=== PATIENT | male | born 1975 | race Caucasian/White ===

== ENCOUNTER 2023-04-28 08:28 | Day surgery (SDC) | payer OTHER ==
[~2023-04-28] VITALS: Ht 177.8 cm; Wt 102.9 kg
[~2023-04-28 08:28] MED LIST: IBLOOD GLUCOSE TEST STRIP 1 EA TEST VI PRN; LACTATED RINGER'S 1,000 ML IV SCH; LIDOCAINE HCL 1% 5 ML SDV INJ ONE; MIDAZOLAM HCL 5 MG/5 ML VIAL IV PRN; fentaNYL citrate 100 MCG/2 ML VIAL IV PRN
[2023-04-28 08:47] VITALS: BP 134/98
[2023-04-28] MEDS ORDERED: FLOMAX0.4 MG PO (08:50)
[2023-04-28] MEDS ORDERED: MIDAZOLAM HCL 5 MG/5 ML VIAL ONE (09:50)
[2023-04-28] MEDS ORDERED: fentaNYL citrate 100 MCG/2 ML VIAL ONE (09:50)
--- NOTE | 2023-04-28 10:47 | NUR ---
04/28/23 Shayne7 Virginia Tavarez 1042-PATIENT ARRIVED TO PACU ON 2L NC RR EVEN. PATIENT DROWSY REACTIVE TO VERBAL STIMULI OPENING EYES DENIES PAIN OR NAUSEA. PATIENT LAYING LEFT LATERAL ABDOMEN SOFT. IVF INFUSING. PATIENT DOZES BACK TO SLEEP
[2023-04-28 11:34] VITALS: BP 134/96
--- NOTE | 2023-04-28 16:44 | OR ---
[facility] [address], [place] [address] Signed DATE OF OPERATION: 04/28/2023 SURGEON: Damian Balderas MD PREOPERATIVE DIAGNOSIS: Screening. POSTOPERATIVE DIAGNOSES: 1. 4 mm polyp at 6 cm in the rectum. 2. Angulated left colon. PROCEDURE: Colonoscopy with hot biopsy. ESTIMATED BLOOD LOSS: None. INDICATIONS: Doyle is a 47-year-old gentleman, asked to see me for his initial screening colonoscopy. He has no lower GI complaints. There is no family history of colon cancer or polyps. In the office, I gave him a pamphlet on colonoscopy and we looked at that together. He understands the nature of the test. There is risk including, but not limited to gas bloating, crampy abdominal pain, bleeding, perforation requiring surgery, and missed diagnosis. We also reviewed the written instructions for the bowel prep line by line. We also discussed the need for IV conscious sedation. He understands an adult person has to take him home afterwards. He had expressed understanding and wished to proceed. DESCRIPTION OF PROCEDURE: Doyle was taken into our endoscopy suite and placed in the left lateral decubitus position. He was given a total of 7 mg of Versed and 175 mcg of fentanyl. Even then he was frequently awake, talking and in pain. In particular, he has an angulated area in his left colon that took a bit to get around. I think he would be much better served with monitored anesthesia care in the future with propofol infusion. I think it would certainly be more comfortable for him and technically easier for the endoscopist. Thankfully, his prep was quite excellent. We eventually made it slowly but surely into the cecum itself. He had just a few areas of liquid stool which were suctioned out. We could easily see the appendiceal orifice and the ileocecal valve. The scope was then slowly withdrawn. We took several pictures throughout for photodocumentation. He had no pathology in his entire colon except for that angulated area. Once in the rectum, he had just a tiny 4 mm polyp back at 6 cm. It was easily removed with the help of hot Electronically Signed By: DAMIAN BALDERAS MD 04/28/23 1644 PATIENT NAME: DOYLE MONTEIRO OPERATIVE REPORT DATE OF : 71 REPORT #: [id number] PHYSICIAN: DAMIAN BALDERAS MD PCP: NAHUM LYNN MD REPORT IS CONFIDENTIAL AND NOT TO BE RELEASED WITHOUT AUTHORIZATION [facility] [address], [place] [address] Signed biopsy forceps. Upon retroflexion of the scope, I really did not see any new pathology. He had just a little bit of internal hemorrhoid tissue. After this, the gas was suctioned out and the colonoscope removed. Doyle overall tolerated the procedure well. RECOMMENDATIONS: I will see Doyle back in my office in 7 to 14 days to review his results. I suspect this will be a hyperplastic polyp and he will be on the 10 year plan. He might consider monitored anesthesia care with propofol infusion in the future as described above. Damian Balderas MD ALB/LUCINDAL /[id number] cc: MD Damian Hood MD Copies: NAHUM LYNN DMD, ANDREW L MD ~ Electronically Signed By: DAMIAN BALDERAS MD 04/28/23 1644 PATIENT NAME: DOYLE MONTEIRO OPERATIVE REPORT DATE OF : 71 REPORT #: [id number] PHYSICIAN: DAMIAN BALDERAS MD PCP: NAHUM LYNN MD REPORT IS CONFIDENTIAL AND NOT TO BE RELEASED WITHOUT AUTHORIZATION
--- NOTE | 2023-04-30 10:57 | PATH ---
[facility] [address] [place], [place] [address] Signed SPECIMEN(S): A RECTAL POLYP, 6 CM SPECIMEN SOURCE: A. RECTAL POLYP, 6 CM CLINICAL HISTORY: Screening. Polyp 6 cm. FINAL PATHOLOGIC DIAGNOSIS: Rectal polyp, biopsies: - Fragments of hyperplastic polyp. AMB MICROSCOPIC EXAMINATION: Histologic sections of all submitted blocks are examined by light microscopy. These findings, together with the gross examination, support the pathologic diagnosis. GROSS DESCRIPTION: The specimen, labeled and designated "Ander rectal polyp 6 cm," is received in formalin and consists of two peng soft tissue fragments, ranging from 0.2-0.3 cm. Entirely submitted in (A1). VB (under the direct supervision of a pathologist) The Gross Description was prepared using a voice recognition system. The report was reviewed for accuracy; however, sound-alike word errors, addition and/or deletions may occur. If there is any question about this report, please contact Client Services. ADDITIONAL NOTES: Immunohistochemical and/or in situ hybridization studies if performed in this case included appropriate positive controls that reacted as expected. This test was developed and its performance characteristics determined by [facility]. It has not been cleared or approved by the U.S. Food and Drug Administration. The FDA has determined that such clearance or approval is not necessary. This test is used for clinical purposes. It should not be regarded as investigational or for research. [facility] is certified under the Clinical Laboratory Improvement Amendments of 1988 (CLIA) as qualified to perform high complexity clinical laboratory testing. PATIENT NAME: QUINN MONTEIRO PATHOLOGY DATE OF : 71 REPORT #: [id number] PHYSICIAN: LUKE TAYLOR PCP: NAHUM LYNN MD REPORT IS CONFIDENTIAL AND NOT TO BE RELEASED WITHOUT AUTHORIZATION [facility] [address] [place], [place] [address] Signed PERFORMING LABORATORY: Technical component was performed by [facility], [address] [place] [address] (CLIA# [id number]). Professional interpretation was performed by [facility] [address] [address] [id number] Diagnostician: Charline Hudson MD Pathologist Electronically Signed 04/30/2023 Copies: ~ PATIENT NAME: QUINN MONTEIRO PATHOLOGY DATE OF : 71 REPORT #: [id number] PHYSICIAN: LUKE TAYLOR PCP: NAHUM LYNN MD REPORT IS CONFIDENTIAL AND NOT TO BE RELEASED WITHOUT AUTHORIZATION
== END 2023-04-28 11:25 | disposition home or self-care (01) ==
LOC: DS 08:28
PROVIDERS: ATTEND Colon & Rectal Surgery
PROC: 0DBP8ZX Excision of Rectum, Via Natural or Artificial Opening Endoscopic, Diagnostic (ICD-10-PCS; principal; 2023-04-28 09:35)
DX: Z12.11 Encounter for screening for malignant neoplasm of colon (principal); K62.1 Rectal polyp; K63.89 Other specified diseases of intestine; N40.0 Benign prostatic hyperplasia without lower urinary tract symptoms; G56.00 Carpal tunnel syndrome, unspecified upper limb; G62.9 Polyneuropathy, unspecified
CPT/HCPCS: 99153; G0500; J2250; J3010; J7121

== ENCOUNTER 2025-01-24 05:54 | Day surgery (SDC) | payer OTHER ==
[~2025-01-24] VITALS: Ht 177.8 cm; Wt 100.0 kg
[~2025-01-24 05:54] MED LIST changes: +FLOMAX0.4 MG PO; -IBLOOD GLUCOSE TEST STRIP 1 EA TEST VI PRN; -LIDOCAINE HCL 1% 5 ML SDV INJ ONE; -MIDAZOLAM HCL 5 MG/5 ML VIAL IV PRN; +ROSUVASTATIN CA10 MG PO; -fentaNYL citrate 100 MCG/2 ML VIAL IV PRN
[2025-01-24 06:08] VITALS: BP 139/85
[2025-01-24] MEDS ORDERED: LIDOCAINE HCL 1% 5 ML SDV INJ ONE (07:00)
[2025-01-24] MEDS ORDERED: CEFAZOLIN SODIUM 2 GM in SODIUM CHLORIDE 0.9% 100 ML IV SCH (07:00)
[2025-01-24] MEDS ORDERED: IBLOOD GLUCOSE TEST STRIP 1 EA TEST VI PRN (07:00)
[2025-01-24] MEDS ORDERED: LIDOCAINE HCL 2% 5 ML SDV ONE (07:01)
[2025-01-24] MEDS ORDERED: LIDOCAINE HCL 1% 30 ML SDV ONE (07:01)
[2025-01-24] MEDS ORDERED: fentaNYL citrate 100 MCG/2 ML VIAL ONE (07:22)
--- NOTE | 2025-01-24 08:32 | NUR ---
01/24/25 0832 Sujatha Tavera 0827: PT ARRIVES TO PACU WITH ORAL AIRWAY IN PLACE. HE IS NON REACTIVE TO STUMILI. DRESSING IS CDI, RIGHT HAND ELEVATED ON PILLOW. REPORT RECEIVED FROM INJECTION SPECIALIST AND WOOD GETTER.
[2025-01-24] MEDS ORDERED: IBUPROFEN 600 MG TAB PO PRN (08:45)
[2025-01-24] MEDS ORDERED: IBUPROFEN600 MG PO (08:45)
[2025-01-24] MEDS ORDERED: PROCHLORPERAZINE EDISYLATE 10 MG/2 ML VIAL IV PRN (08:45)
[2025-01-24] MEDS ORDERED: OXYCODONE/APAP 7.5/325 TAB PO PRN (08:45)
[2025-01-24] MEDS ORDERED: LACTATED RINGER'S 1,000 ML IV SCH (08:45)
[2025-01-24] MEDS ORDERED: NALOXONE HCL 0.4 MG SYR IV PRN (08:45)
[2025-01-24] MEDS ORDERED: ACETAMINOPHEN 500 MG TAB PO PRN (08:45)
[2025-01-24] MEDS ORDERED: ACETAMINOPHEN500 MG PO (08:46)
[2025-01-24] MEDS ORDERED: OXYCODON-ACETA1 EAC2 PO (08:46)
[2025-01-24 09:16] VITALS: BP 132/82
--- NOTE | 2025-01-25 14:52 | OR ---
[facility] [address] [place], [place] [address] Signed DATE OF OPERATION: 01/24/2025 SURGEON: David Hebert MD PREOPERATIVE DIAGNOSIS: Bilateral carpal tunnel syndrome, right greater than left. POSTOPERATIVE DIAGNOSIS: Bilateral carpal tunnel syndrome, right greater than left. PROCEDURE: Right carpal tunnel release ANESTHESIA: Right [place] block with IV sedation, Tyree Jimenez CRNA and local 3 mL of 0.25% Marcaine without epinephrine. Tourniquet time 25 minutes. 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 Nahum Lynn. The patient has had rather typical symptoms of carpal tunnel syndrome including numbness of the hand from the wrist down including dominantly the index, middle, and thumb fingers. Wrist splints at night have been of little benefit. Evaluation was undertaken under the direction of Dr. 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 There is no sign of cervical radiculopathy. The patient works as a aircraft sheet metal mechanic, has thickened skin of the hands and so on and the symptoms are now disabling to him. On that basis, he is here for right carpal tunnel release as his symptoms are most dominantly on the right side at this time. He understands the risk of carpal tunnel release including, but not limited to bleeding, infection, motor nerve to the thenar eminence injury, and other unforeseen complications and wished to proceed. FINDINGS: The transverse carpal tunnel was thick as usually is the case and was freed from the palmar fat to the proximal transverse wrist crease without problem under direct visualization. There were no complications. The nerve appeared mildly chronically inflamed, but without sign of hourglass configuration or neoplasm. DESCRIPTION OF PROCEDURE: The patient was brought to the operating room, given a Natalie block anesthetic with good Electronically Signed By: DAVID HEBERT MD 01/25/25 1452 PATIENT NAME: QUINN MONTEIRO OPERATIVE REPORT DATE OF : 71 REPORT #: [id number] PHYSICIAN: DAVID HEBERT MD PCP: NAHUM LYNN MD REPORT IS CONFIDENTIAL AND NOT TO BE RELEASED WITHOUT AUTHORIZATION [facility] [address] [place] [id number] Signed exsanguination of the hand and wrist. The tourniquet was placed below the elbow per Anesthesia preference. Preoperative antibiotic Ancef was given. The hand was prepared previously with vigorous scrub due to his oil and dirt impregnation of the skin bilaterally related to his work. After sterile preparation, the wrist was placed with the volar aspect elevated and a lead finger retractors applied after applying a rolled blue towel beneath the wrist. Excellent exposure of the palmar aspect was then noted. Ulnar to the thenar crease, small incision was made. Dissection was carried through the thick dermis and subcutaneous fat, incising the palmaris longus longitudinally revealing the underlying transverse carpal ligament. This was incised with a 15 blade and loupe magnification was used as always. Once the nerve was identified, a fine tipped hemostat was inserted beneath the ligament distally, transecting the ligament onto the fatty palmar fascia. Hemostat was replaced proximally and transected in a similar way ultimately finishing the transection with tenotomy scissors under direct visualization. The underlying nerve was chronically inflamed. Once satisfied, the ligament was completely transected appropriately. Irrigation was undertaken and 3 mL of 0.25% Marcaine without epinephrine was injected locally. The skin was then closed with interrupted 2-0 nylon suture. Xeroform gauze was applied as was a rolled 4 x 4 gauze followed by Flexicon application, a wrist splint and ultimately followed by a 4-inch Elbert wrap firmly applied. Pressure was applied to the operative site and the tourniquet was released. When rubor returned to the fingers, pressure on the incision site was released. He tolerated the procedure well, was taken to recovery room in good condition. MD DICKSON Bentley/MODL /[id number] cc: MD Jonathan DonisMONTEREY, [place] Nahum Lnyn MD Electronically Signed By: DAVID HEBERT MD 01/25/25 1452 PATIENT NAME: QUINN MONTEIRO OPERATIVE REPORT DATE OF : 71 REPORT #: [id number] PHYSICIAN: DAVID HEBERT MD PCP: NAHUM LYNN MD REPORT IS CONFIDENTIAL AND NOT TO BE RELEASED WITHOUT AUTHORIZATION [address] [address] Signed Copies: NAHUM LYNN DMD ~ Electronically Signed By: DAVID HEBERT MD 01/25/25 1452 PATIENT NAME: QUINN MONTEIRO OPERATIVE REPORT DATE OF : 71 REPORT #: [id number] PHYSICIAN: DAVID HEBERT MD PCP: NAHUM LYNN MD REPORT IS CONFIDENTIAL AND NOT TO BE RELEASED WITHOUT AUTHORIZATION
== END 2025-01-24 09:25 | disposition home or self-care (01) ==
LOC: OPS 05:54 → DS 05:54 → OPS 07:30 → DS 07:30 → OPS 09:25
PROVIDERS: ATTEND Surgery
PROC: 01N50ZZ Release Median Nerve, Open Approach (ICD-10-PCS; principal; 2025-01-24 07:30)
DX: G56.03 Carpal tunnel syndrome, bilateral upper limbs (principal); I10 Essential (primary) hypertension; E78.5 Hyperlipidemia, unspecified; N40.1 Benign prostatic hyperplasia with lower urinary tract symptoms; R35.1 Nocturia; G47.30 Sleep apnea, unspecified; E66.9 Obesity, unspecified; Z68.33 Body mass index [BMI] 33.0-33.9, adult; Z79.899 Other long term (current) drug therapy; Z87.891 Personal history of nicotine dependence
CPT/HCPCS: 01810; 99153; G0500; J0688; J2003; J2704; J3010; J7121